=== PATIENT | male | born 1965 | race Caucasian/White ===

== ENCOUNTER 2019-09-16 18:01 | Emergency (ER) | payer OTHER ==
[~2019-09-16] VITALS: Ht 172.7 cm; Wt 95.7 kg
[2019-09-16] MEDS ORDERED: MICARDIS HCT 81 EAC1 (18:20)
[2019-09-16] MEDS ORDERED: METFORMIN HCL500 M3 (18:21)
[2019-09-16] MEDS ORDERED: ULTRAM50 MG (18:21)
[2019-09-16] MEDS ORDERED: ZYRTEC10 M3 (18:22)
[2019-09-16] MEDS ORDERED: PROSCAR5 MG (18:23)
[2019-09-16] MEDS ORDERED: TAMS0.4C (18:24)
[2019-09-16] MEDS ORDERED: DEPO-TESTO200 MG/1 M (18:24)
[2019-09-16] MEDS ORDERED: NASAL MIST126 ML (18:24)
[2019-09-16] MEDS ORDERED: CYTOMEL5 MCG (18:25)
[2019-09-16] MEDS ORDERED: THREONINE (18:25)
[2019-09-16] MEDS ORDERED: DICLOFENAC SODI75 MG PO (19:13)
== END 2019-09-16 19:25 | disposition home or self-care (01) ==
LOC: ER 18:01
DX: M75.32 Calcific tendinitis of left shoulder (principal); M25.512 Pain in left shoulder